=== PATIENT | male | born 1980 | race Caucasian/White ===

== ENCOUNTER 2023-05-26 23:10 | Emergency (ER) | payer SELFPAY ==
[~2023-05-26] VITALS: Ht 165.1 cm; Wt 70.3 kg
[2023-05-26 23:35] VITALS: BP 122/80; PULSE 75; RESP 17; TEMP 97.8; O2SAT 96
--- NOTE | 2023-05-26 23:38 | NUR ---
TO LOBBY A/W BED AMBULATORY
[2023-05-27] MEDS ORDERED: KETOROLAC 30 MG/ML VIAL IM ONE (01:55)
[2023-05-27] MEDS ORDERED: IBUP-2218 PO (02:54)
[2023-05-27 03:07] VITALS: BP 122/80; PULSE 75; RESP 17; TEMP 97.8; O2SAT 96
== END 2023-05-27 03:06 | disposition home or self-care (01) ==
LOC: MED 23:10
DX: R51.9 Headache, unspecified (principal); Z79.1 Long term (current) use of non-steroidal anti-inflammatories (NSAID)
CPT/HCPCS: 96372; 99283; J1885